=== PATIENT | female | born 2005 | race Caucasian/White ===

== ENCOUNTER 2024-06-21 02:36 | Emergency (ER) | payer BC, SELFPAY ==
--- NOTE | 2024-06-21 02:50 | ED.PSYCH ---
HPI - Psych General Chief Complaint: Psychiatric Symptoms Stated Complaint: Section 12 superficial cuts & thought to harm self Time Seen by Provider: 06/21/24 02:44 Source: patient and EMS Mode of arrival: EMS Limitations: no limitations History of Present Illness ED Provider: Dr. Betty Toussaint HPI Narrative: Patient comes to the emergency room via ambulance from [facility]. Patient states that earlier today, she got into an argument with her roommate. Patient admits that she was intoxicated. Patient states that she left the room and started cutting herself in the wrist. Patient states that she was trying to hurt herself significantly. Patient states that the cutting was not just a stress reliever. Patient denies HI. Related Data Home Medications ?Medication ?Instructions ?Recorded ?Confirmed clonazepam 0.5 mg tablet 0.5 mg PO DAILY 06/22/24 06/22/24 escitalopram oxalate 10 mg tablet 20 mg PO BEDTIME 06/22/24 06/22/24 etonogestrel 0.12 mg-ethinyl 1 vag ring vaginal Q28D 06/23/24 estradiol 0.015 mg/24 hr vaginal ring Allergies Allergy/AdvReac Type Severity Reaction Status Date / Time No Known Allergies Allergy Verified 06/21/24 02:54 Review of Systems Review of Systems: Constitutional : No Weight loss, No Fever, No Chills, No Night Sweats, No Fatigue, No Malaise ENT/Mouth : No Hearing loss, No Ear Pain, No Nasal Congestion, No Sinus Pain, No Hoarseness, No sore throat, No Rhinorrhea, No Swallowing Difficulty Eyes: No Eye Pain, No Swelling, No Redness, No Foreign Body, No Discharge, No Vision Changes Cardiovascular : No Chest Pain, No SOB, No Dyspnea on Exertion, No Orthopnea, No Edema, No Palpitations Respiratory : No Cough, No Sputum, No Wheezing, No Smoke Exposure, No Dyspnea Gastrointestinal : No Nausea, No Vomiting, No Diarrhea, No Constipation, No abdominal Pain, No Hematochezia, No Melena Genitourinary : no irregular bleeding, No Dysuria, No Urinary Frequency, No Hematuria, No Urinary Incontinence, No Urgency, No Flank Pain, No Urinary Flow Changes, No Hesitancy Musculoskeletal : No joint pain, No Myalgias, No Joint Swelling Skin : Scratches on the left forearm Neuro : No Weakness, No Numbness, No Paresthesias, No Loss of Consciousness, No Dizziness, No Headache Psych : Complaining of anxiety, depression, suicidal ideation, no HI Heme/Lymph: No Bruising, No Bleeding,No Lymphadenopathy Endocrine : No Polyuria, No Polydipsia, No Temperature Intolerance [facility] Past Medical History Medical History (Updated 06/24/24 @ 00:00 by Background Daemon) Anxiety and depression Social History Social History Alcohol intake: current Alcohol intake frequency: 3 or more drinks per day Smoked in Last 30 Days: No Use of substances other than those prescribed or required for medical reasons: No Advance Directives: No Advance Directives Information Provided: Yes Patient : No Physical Exam Vital Signs: Vital Signs: Last Vital Signs Temp 98.3 F 06/23/24 09:43 Pulse 69 06/23/24 09:43 Resp 16 06/23/24 09:43 BP 108/61 06/23/24 09:43 Pulse Ox 99 06/23/24 09:43 O2 Del Method Room Air 06/23/24 09:43 BMI result Body Mass Index 18.5 Const: Other: Appearance: Alert. Oriented X3. No acute distress. Eyes: Pupils equal, round and reactive to light. ENT: Pharynx normal. Neck: Normal inspection. Neck supple. No lymph nodes noted. No crepitus CVS: Normal heart rate and rhythm. Pulses normal. Normal S1 and S2 Respiratory: No respiratory distress. Breath sounds normal. No Wheezing. No rales Abdomen: Soft and nontender. No rigidity. No distention. Skin: Skin warm and dry. Normal skin color. Normal skin turgor. Patient has been very superficial scratches on the the forearm, no bleeding, no stitches needed Extremities: No lower extremity edema. No Lacerations. No Rash Neuro: Oriented X 3. No motor deficit. No sensory deficit. Moving all extremities. No slurred speech. CN 2 through 12 grossly intact Psych: calm, cooperative, normal affect Course Course Course Narrative: PD faxed a section 12, patient is on our own Section 12 All of patient's labs pending Care team consult pending Physician observation started at 03:10 Reevaluation(s) Reevaluation #1: The patient was signed out to me at change of shift by the overnight emergency physician. The patient is a 19-year-old female who was an [employer] student and who has been found on campus cutting herself with thoughts about killing herself. She has been seen by the care team during the day shift today and has been judged to require inpatient psychiatric hospitalization. She will be kept in the emergency room on a section 12A. The patient has been stable otherwise. The patient will be placed in physician observation pending disposition by the care team. Time: 16:13 Reevaluation #2: Time: 09:22 Date: 06/22/24 Provider: YFN Moe Patient in physician observation for psychiatric evaluation.? No acute events reported overnight. No current complaints. VS stable.? Patient is in bed search status/pending CARE team evaluation. Will continue to monitor. Time: 17:06 Reevaluation #3: Patient is seen by care team plan for respite placement entry evaluation a.m. Medications Administered Discontinued Medications Generic Name Dose Route Start Last Admin Trade Name Freq PRN Reason Stop Dose Admin Clonazepam 0.5 mg 06/23/24 09:00 06/23/24 08:15 Clonazepam 0.5 Mg Tablet PO Not Given DAILY VEDA Escitalopram Oxalate 20 mg 06/22/24 21:00 06/22/24 22:52 Escitalopram Oxalate 20 Mg Tablet PO 20 mg BEDTIME VEDA Administration Medical Decision Making Medical Decision Making MDM Narrative: Patient is seen by the crisis team. Had a history of cutting. No acute distress. Being discharged from the ED going to rehab after care team evaluation. Differential Diagnosis Differential Diagnoses: The differential diagnosis associated with the presentation includes (Anxiety, depression, substance abuse) Admission/Observation Consideration of admission/observation: Escalation of care including admission/observation considered (Patient is on a Section 12 waiting to be seen by the care team to determine patient's disposition) Lab Data 06/21/24 03:04 06/21/24 03:04 Labs: Lab Results 06/21/24 06/21/24 Range/Units 03:04 03:04 WBC 4.6 L (4.8-10.8) X10*3/uL RBC 4.62 (4.20-5.50) X10*6/uL Hgb 13.4 (12.0-16.0) g/dl Hct 38.9 (37.0-47.0) % MCV 84.2 (80.0-98.0) fL MCH 29.0 (27.0-33.0) pg MCHC 34.4 (31.0-35.0) g/dl RDW 12.3 (11.0-16.0) % Plt Count 197 (160-400) X10*3/uL MPV 9.9 (9.4-12.3) fL Immature Gran % (Auto) 0.2 (0.0-0.4) % Neut % (Auto) 50.4 (45-73) % Lymph % (Auto) 36.7 (20-40) % [place] % (Auto) 5.6 (2-11) % Eos % (Auto) 6.5 H (0-4) % Baso % (Auto) 0.6 (0-2) % Lymph # (Auto) 1.7 (1.2-4.9) X10*3/uL [place] # (Auto) 0.3 (0.1-1.2) X10*3/uL Eos # (Auto) 0.3 (0.0-0.4) X10*3/uL Baso # (Auto) 0.0 (0.0-0.2) X10*3/uL Abs Immat Gran (auto) 0.01 (0.00-0.03) X10*3/uL Absolute Neuts (auto) 2.3 (2.0-8.3) x10*3/uL Absolute Nucleated RBC 0.000 (0.0-0.012) X10*3/uL Nucleated RBC % (auto) 0.0 (0.0-0.2) /100WBC Sodium 144 (135-145) mmol/L Potassium 3.3 (3.3-5.1) mmol/L Chloride 113 H (96-108) mmol/L Carbon Dioxide 19 L (22-29) mmol/L Anion Gap 15 (12-20) BUN 5 L (9-16) mg/dL Creatinine 0.68 (0.5-1.4) mg/dL Estim Creat Clear Calc 118.1 Estimated GFR > 60 Random Glucose 94 (60-115) mg/dL Calcium 9.0 (8.4-10.2) mg/dL Total Bilirubin 0.2 (0.0-1.0) mg/dL Direct Bilirubin < 0.2 (0.0-0.5) mg/dL AST 20 (5-31) U/L ALT 10 (0-31) U/L Alkaline Phosphatase 40 (39-117) U/L Total Protein 7.3 (6.5-8.0) g/dL Albumin 4.3 (3.5-5.0) g/dL Urine Test NEGATIVE (NEGATIVE) Salicylates < 5.0 L (15-30) mg/dL Urine Opiates Screen Not Detected (Not Detect) Ur Buprenorphine Scrn Not Detected (Not Detect) ng/mL Ur Oxycodone Screen Not Detected (Not Detect) ng/mL Urine Methadone Screen Not Detected (Not Detect) ng/mL Urine Fentanyl Screen Not Detected (Not Detect) Acetaminophen < 3 (<30) mcg/mL Ur Barbiturates Screen Not Detected (Not Detect) Ur Phencyclidine Scrn Not Detected (Not Detect) Ur Amphetamines Screen Not Detected (Not Detect) U Benzodiazepines Scrn Not Detected (Not Detect) Urine Cocaine Screen Not Detected (Not Detect) U Marijuana (THC) Screen Not Detected (Not Detect) Ethyl Alcohol 151 Cancelled mg/dL Discharge Plan Discharge Clinical Impression: Depression, Acute anxiety Patient Disposition: Home, Self-Care Instructions: Depression (ED), Anxiety (ED) Additional Instructions: follow up with your therapist Continue your Medication Prescriptions: No Action clonazepam 0.5 mg tablet 0.5 mg PO DAILY escitalopram oxalate 10 mg tablet 20 mg PO BEDTIME etonogestrel-ethinyl estradiol 0.12-0.015 mg/24 hr ring 1 vag ring VAGINAL Q28D Referrals: Physician,Unknown J [Primary Care Provider] - (Please follow-up plan as per care team) Interventions: [place]-Suicide Risk Severity Scale Last Done: 06/22/24 12:40 ED Discharge Assessment Last Done: 06/23/24 09:43 Discharge Date/Time: 06/23/24 09:48 Print Language: Kyrgyz
[2024-06-21 02:52] VITALS: BP 104/69; PULSE 94; RESP 16; TEMP 36.8; O2SAT 97; BMI 18.5
[2024-06-21 02:55] VITALS: BP 104/69; PULSE 94; RESP 16; TEMP 36.8; O2SAT 97
--- NOTE | 2024-06-21 03:11 | MHC.EDTECH ---
Security called to assist with belongings, belonging list completed,All belongings locked in the [facility] shelf # 2
[2024-06-21 03:12] LABS: MANUAL DIFF FLAG NO
[2024-06-21 03:15] LABS: Basophils Percent Auto 0.6 % (0-2); Eosinophils Absolute Auto 0.3 X10*3/uL (0.0-0.4); Eosinophils Percent Auto 6.5 % (0-4); Hematocrit 38.9 % (37.0-47.0); Hemoglobin 13.4 g/dl (12.0-16.0); Imm Gran Abs Auto 0.01 X10*3/uL (0.00-0.03); Imm Gran Pct Auto 0.2 % (0.0-0.4); Lymphocytes Absolute Auto 1.7 X10*3/uL (1.2-4.9); Lymphocytes Percent Auto 36.7 % (20-40); Mean Corpuscular HGB Conc 34.4 g/dl (31.0-35.0); Mean Corpuscular Volume 84.2 fL (80.0-98.0); Mean Platelet Volume 9.9 fL (9.4-12.3); Monocytes Absolute Auto 0.3 X10*3/uL (0.1-1.2); Monocytes Percent Auto 5.6 % (2-11); Neutrophils Absolute Auto 2.3 x10*3/uL (2.0-8.3); Neutrophils Percent Auto 50.4 % (45-73); Platelet Count 197 X10*3/uL (160-400); Red Blood Count 4.62 X10*6/uL (4.20-5.50); Red Cell Distribution Width 12.3 % (11.0-16.0); White Blood Count 4.6 X10*3/uL (4.8-10.8)
[2024-06-21 03:17] LABS: UPreg QC Valid YES; Urine Pregnancy NEGATIVE (NEGATIVE)
[2024-06-21 03:30] LABS: Amphetamine Screen Urine Not Detected (Not Detect); Barbiturates, Urine Not Detected (Not Detect); Benzodiazepines Screen Urine Not Detected (Not Detect); Buprenorphine Scr Not Detected (Not Detect); Cannabinoid Screen Urine Not Detected (Not Detect); Cocaine Screen Urine Not Detected (Not Detect); Fentanyl, urine Not Detected (Not Detect); Methadone Screen, Urine Not Detected (Not Detect); Opiate Screen Urine Not Detected (Not Detect); Oxycodone Screen Urine Not Detected (Not Detect); Phencyclidine Screen Urine Not Detected (Not Detect)
[2024-06-21 03:33] LABS: Alanine Aminotransferase 10 U/L (0-31); Albumin Level 4.3 g/dL (3.5-5.0); Alkaline Phosphatase 40 U/L (39-117); Anion Gap 15 (12-20); Aspartate Amino Transferase 20 U/L (5-31); Bilirubin Direct < 0.2 mg/dL (0.0-0.5); Bilirubin Total 0.2 mg/dL (0.0-1.0); Blood Urea Nitrogen 5 mg/dL (9-16); Carbon Dioxide 19 mmol/L (22-29); Chloride 113 mmol/L (96-108); Creatinine Clr Calc Pharmacy 118.1; Estimated Glomerular Filt Rate > 60; Ethanol 151 mg/dL; Glucose Random 94 mg/dL (60-115); Potassium 3.3 mmol/L (3.3-5.1); Sodium 144 mmol/L (135-145); Total Protein 7.3 g/dL (6.5-8.0)
[2024-06-21 03:34] LABS: Acetaminophen LAB < 3 mcg/mL (<30); Salicylate < 5.0 mg/dL (15-30)
[2024-06-21 05:50] VITALS: BP 95/49; PULSE 83; RESP 16; TEMP 36.6; O2SAT 98
--- NOTE | 2024-06-21 12:36 | PC.NURSE ---
with patients permission roommates updated, patient given phone to call roommates
--- NOTE | 2024-06-21 14:50 | MHC.CARE ---
Pt will be an psychiatric [facility] bedsearch.
[2024-06-21 17:32] VITALS: BP 94/51; PULSE 88; RESP 18; TEMP 36.8; O2SAT 97
--- NOTE | 2024-06-22 02:51 | PC.NURSE ---
Pt appears to be sleeping, RR16, even chest wall rise and fall, no s/s of apparent distress noted, 1:1 sitter at bedside.
[2024-06-22 06:37] VITALS: BP 97/52; PULSE 68; RESP 16; TEMP 36.9; O2SAT 99
--- NOTE | 2024-06-22 10:01 | MHC.CARE ---
Krystal Manriquez ([phone]) from [facility] would like a call when patient's placement is secured.
[2024-06-22 14:00] VITALS: BP 118/68; PULSE 74; RESP 18; TEMP 36.4; O2SAT 100
--- NOTE | 2024-06-22 14:09 | PC.NURSE ---
This RN assumed care of patient @ 0700. Patient wanting to leave, informed patient she is on a section and has to stay for her safety. Patient took call from Sánchez Mcdonald from [employer] from students relations. Patient had friends in room visiting, who began negatively impacting patients care, security notified and in room at this time.
--- NOTE | 2024-06-22 14:44 | PC.NURSE ---
Security called bedside after patient's friends from school were noted to be negatively impacting patient care. Patient remained calm/cooperative/aware of plan of care until friends came to visit. Pt noted to be extremely tearful/distraught. Friends were found laying in bed with patient after pharmacist in charge owner had previously asked friends to remove themselves from the bed. They were also found speaking to multiple staff members including the sitter, ED techs and multiple ED RN's stating that the patient was being neglected and not receiving proper care in the ED. They also stated that it was illegal for her to be held here against her will. Patient/friends once again notified that patient was placed on a section 12 and will not be leaving at this time. Friends removed from ED by security. 1:[address]
--- NOTE | 2024-06-22 17:26 | PC.NURSE ---
Pt brought to pod from ER main; pt calm/cooperative at this time
[2024-06-22] MEDS: Escitalopram Oxalate 20 MG TABLET PO (22:52)
--- NOTE | 2024-06-23 07:25 | PC.NURSE ---
Assumed care of patient at 0645, patient appears to be in no apparent distress this am, sleeping, respiraitons even and unlabored. Continue plan of care for respite bedsearch
[2024-06-23 07:58] VITALS: BP 100/61; PULSE 63; RESP 16; TEMP 36.7; O2SAT 98
[2024-06-23 09:43] VITALS: BP 108/61; PULSE 69; RESP 16; TEMP 36.8; O2SAT 99
== END 2024-06-23 09:48 | disposition home or self-care (01) ==
PROVIDERS: Emergency Provider Emergency Medicine
DX: F33.1 Major depressive disorder, recurrent, moderate (principal); R45.851 Suicidal ideations; F41.9 Anxiety disorder, unspecified; F10.129 Alcohol abuse with intoxication, unspecified; Y90.6 Blood alcohol level of 120-199 mg/100 ml; Z51.81 Encounter for therapeutic drug level monitoring; Z79.899 Other long term (current) drug therapy
CPT/HCPCS: 36415; 80048; 80076; 80143; 80179; 80307; 81025; 85025; 99285; S9485